=== PATIENT | male | born 2000 | race African-American/Black ===

== ENCOUNTER 2023-12-26 21:39 | Emergency (ER) | payer OTHER ==
[2023-12-26 21:56] VITALS: BP 157/91; PULSE 62; RESP 18; TEMP 98.6; BMI 25.7
[2023-12-26] MEDS ORDERED: BACITRACIN ZINC 15 GM TUBE TOPICAL OINTMENT ONE (21:59)
[2023-12-26] MEDS ORDERED: DIPHTH,PERTUSS(ACELL),TET 0.5 ML DISP.SYRIN IM ONE (22:09)
[2023-12-26] MEDS ORDERED: ACETAMINOPHEN 325 MG TABLET (FP) ONE (22:09)
[2023-12-26] MEDS: DIPHTH,PERTUSS(ACELL),TET 0.5 ML DISP.SYRIN IM ONE (22:13)
[2023-12-26] MEDS: ACETAMINOPHEN 500 MG TABLET (FP) PO ONE (22:13)
== END 2023-12-26 22:30 | disposition short-term general hospital (02) ==
LOC: JER 21:39
PROC: 3E0234Z Introduction of Serum, Toxoid and Vaccine into Muscle, Percutaneous Approach (ICD-10-PCS; principal; 2023-12-26)
DX: T22.212A Burn of second degree of left forearm, initial encounter (principal); X12.XXXA Contact with other hot fluids, initial encounter; Z23 Encounter for immunization
CPT/HCPCS: 90715; 99285-25